=== PATIENT | male | born 1930 | race Caucasian/White ===

== ENCOUNTER 2016-04-25 16:35 | Emergency (ER) | payer MEDICARE, OTHER ==
[2016-04-25 16:16] LABS: WBC (NOT ORDERED) (RFLEX) 0 (0-5)
[2016-04-25 16:22] LABS: BASOPHILS 0.1 %; BASOPHILS ABSOLUTE 0.01 10/3/uL (0.0-0.16); EOSINOPHILS 5.8 %; EOSINOPHILS ABSOLUTE 0.39 10/3/uL (0.0-0.53); HEMATOCRIT 32.1 % (40.0-51.0); HEMOGLOBIN 10.5 g/dL (13.6-17.8); IMMATURE GRANULOCYTES 0.1 %; IMMATURE GRANULOCYTES ABSOLUTE 0.01 10/3/uL (0.0-0.11); LYMPHOCYTES 25.4 %; LYMPHOCYTES ABSOLUTE 1.71 10/3/uL (0.67-4.30); MANUAL DIFF NO %; MEAN CORPUS HGB CONC 32.7 g/dL (32.0-36.0); MEAN CORPUSCULAR HEMOGLOB 32.3 pg (26.0-34.0); MEAN CORPUSCULAR VOLUME 98.8 fL (80-100); MEAN PLATELET VOLUME 8.8 fL (9.2-13.0); MONOCYTES 4.9 %; MONOCYTES ABSOLUTE 0.33 10/3/uL (0.21-1.20); NEUTROPHILS 63.7 %; NEUTROPHILS ABSOLUTE 4.27 10/3/uL (2.02-8.40); PLATELET COUNT 163 10/3/uL (150-400); RBC DISTRIBUTION WIDTH 13.6 % (12.0-16.0); RED CELL COUNT 3.25 10/6/uL (4.7-6.1); WHITE BLOOD CELLS 6.7 10/3/uL (4.5-10.5)
[2016-04-25 16:28] LABS: ASCORBIC ACID (UR NOT ORDER) NEG (NEG); BILIRUBIN, URINE NEGATIVE (NEG); ER URINALYSIS TAT 0 Hrs 14 Mins; KETONE, URINE NEGATIVE (NEG); LEUKOCYTE ESTERASE(NOT OR NEG (NEG); NITRITE (URINE) NEG (NEG)
[2016-04-25 16:30] LABS: PARTIAL THROMBO TIME 32.1 SEC (22.5-37.2)
[~2016-04-25 16:35] MED LIST: ALBUTEROL0.083 % INH; AMIT10 PO; APRES25 PO; APRES50 PO; ASAB PO; ASPIRIN PO; BENTYL10 PO; BUM1 PO; CLOBETASOL 0.05% TOP; CLOBETASOL0.054 TOP; CLOTRIM/BETA TOP; COREG3 PO; COREG6 PO; CULTURELLE OTC PO; CYANO1000T PO; DEMA20 PO; FERROUS SULF325 M1 PO; FLORASTOR250 MG PO; IMMODLIQU PO; KAOPECTAT2 PO; KAYEXUD PO; L20 PO; L40 PO; LYRICA50 PO; LYRICA75 PO; MAGOX4 PO; MELA3 PO; MIRALAXPKT PO; MONODOX100 MG PO; MYCOSOINT TOP; NEUR300 PO; NEUR600 PO; NORV10 PO; NORV5 PO; NYSTOP100000 MG TOP; P10 PO; P20 PO; PREDNISONE TOP; PREDNISONE2.5 MG PO; PREVALITE4 G1 PO; PRILO PO; PROVENT20 INH; PROVENTSOL INH; PULRESP.5 INH; VANC125UDL PO; VANCOCIN HCL125 MG PO; VITAMIN B-122500 MCG PO; VITAMIN B-122500 MCG PO/SL; VITAMIN B-122500 MCG SL; VITAMIN D2000 UNIT PO; VITAMIN D31000 UNIT PO; Z100 PO; Z300 PO
[2016-04-25 16:40] LABS: A/G RATIO 0.9 (0.7-1.9); ALBUMIN 3.4 G/DL (3.5-5.0); ALKALINE PHOSPHATASE 159 U/L (45-117); BUN (BLOOD UREA NITROGEN) 38 MG/DL (6-23); CALCIUM, SERUM 9.9 MG/DL (8.5-10.4); CHLORIDE, SERUM 94 MMOL/L (96-112); CO2 (CARBON DIOXIDE) 34 MMOL/L (24-34); CREATININE 1.98 MG/DL (0.70-1.30); GFR AFRICAN AMERICAN 35 ML/MIN (>=60); GFR NON AFRICAN AMERICAN 30 ML/MIN (>=60); GLUCOSE, SERUM 104 MG/DL (60-99); LACTATE 0.4 MMOL/L (0.3-2.4); POTASSIUM, SERUM 4.6 MMOL/L (3.5-5.3); SGOT(AST) 21 U/L (5-40); SGPT(ALT) 13 U/L (5-65); SODIUM, SERUM 134 MMOL/L (135-148); TOTAL BILIRUBIN 1.1 MG/DL (0-1.2); TOTAL PROTEIN 7.4 G/DL (6.0-8.5); TROPONIN I <0.02 NG/ML (<0.05)
[2016-10-22] MEDS ORDERED: OMNICEF300 PO (22:09)
[2016-10-22] MEDS ORDERED: ALBUTEROL0.083 % INH (22:09)
[2016-10-22] MEDS ORDERED: BACDS PO (22:10)
[2016-10-22] MEDS ORDERED: QUESLITE PO (22:10)
[2016-10-22] MEDS ORDERED: NORV5 PO (22:10)
[2016-10-22] MEDS ORDERED: BUM1 PO ×3 (22:11)
[2016-10-22] MEDS ORDERED: BENTYL10 PO (22:11)
[2016-10-22] MEDS ORDERED: NEUR100 PO (22:12)
[2016-10-22] MEDS ORDERED: FERROUS SULF325 M1 PO (22:12)
[2016-10-22] MEDS ORDERED: Z100 PO (22:12)
[2016-10-22] MEDS ORDERED: CLOBETASOL TOP (22:13)
[2016-10-22] MEDS ORDERED: MELA3 PO (22:14)
[2016-10-22] MEDS ORDERED: AMIT10 PO (22:14)
[2016-10-22] MEDS ORDERED: COREG6 PO (22:14)
[2016-10-22] MEDS ORDERED: PEP20 PO (22:14)
[2016-10-22] MEDS ORDERED: ASAB PO (22:14)
[2016-10-22] MEDS ORDERED: T PO (22:14)
[2016-10-22] MEDS ORDERED: MAGOX4 PO (22:14)
[2016-10-22] MEDS ORDERED: FLORASTOR250 MG PO (22:15)
[2016-10-22] MEDS ORDERED: VITAMIN D31000 UNIT PO (22:15)
[2016-10-22] MEDS ORDERED: VITAMIN B-122500 MCG SL (22:15)
[2016-10-22] MEDS ORDERED: PROCRIT INJECTION IM (22:16)
[2016-11-01] MEDS ORDERED: COREG3 PO (11:02)
[2016-11-01] MEDS ORDERED: APRES50 PO (11:09)
== END 2016-04-25 17:24 | disposition home or self-care (01) ==
LOC: ER 16:35
PROVIDERS: Specialist
DX: L03.116 Cellulitis of left lower limb (principal); L03.115 Cellulitis of right lower limb; I13.0 Hypertensive heart and chronic kidney disease with heart failure and stage 1 through stage 4 chronic kidney disease, or unspecified chronic kidney disease; N18.9 Chronic kidney disease, unspecified; I50.9 Heart failure, unspecified; D64.9 Anemia, unspecified; J44.9 Chronic obstructive pulmonary disease, unspecified; F03.90 Unspecified dementia, unspecified severity, without behavioral disturbance, psychotic disturbance, mood disturbance, and anxiety; Z87.891 Personal history of nicotine dependence; Z88.5 Allergy status to narcotic agent; Z91.09 Other allergy status, other than to drugs and biological substances; Z79.82 Long term (current) use of aspirin; Z79.899 Other long term (current) drug therapy
CPT/HCPCS: 36600; 71010; 80053; 81001; 83605; 83690; 83880; 84484; 85025; 85610; 85730; 87040; 93005; 96374; 99285; A9270-GY; J0360

== ENCOUNTER 2016-05-29 19:32 | Inpatient (IN) | payer MEDICARE, OTHER ==
--- NOTE | ~2016-05-29 | HP ---
History And Physical [place] [address] [facility] [place]. [address] NAME: GOPAL DAIGLE : 30 STATUS : ADM IN PAT#: [id number] AGE: 86 ADM/REG DATE : 05/29/16 MR#: [id number] REPORT SERV DATE: 05/30/16 DICTATED BY: DANY NAPIER DATE: 05/29/16 REPORT STATUS : Draft TRANSCRIBED BY: MODL DATE: 05/29/16 DATE OF ADMISSION: 05/29/2016 CHIEF COMPLAINT: Fever, shaking chills, altered mental status, and weakness. HISTORY OF PRESENT ILLNESS: This is an 86-year-old male, who presents to the emergency room at [facility] with the above-mentioned complaint. History is obtained from the patient and reviewing data available on the Somewhere system. According to Mr. Daigle and his son who is at bedside, who is the primary historian, he was in his usual state of health, being able to take care of activities of daily living by himself until Tuesday when he had apparently a stomach virus and started having nausea with severe vomiting according to the son. They have a feeling that he might have aspirated during one of those episodes. It lasted for more than half a day. According to them, unfortunately since then, he had been declining, he had developed a cough, which was essentially nonproductive. He has become more lethargic, somnolent, and weak. Today, he started having severe shaking spells and his daughter, who was with him, is very concerned, called Home Health, and they advised them to take him to the emergency room right away. They decided to come to the emergency room at [facility]. In emergency room, initial workup revealed he had leukocytosis along with a febrile illness. He had acute on chronic kidney disease along with a faint infiltrate versus pneumonitis seen on chest x-ray. He also has chronic anemia and other problems, and Hospitalist Service is asked to admit him for further evaluation and treatment. At the time of my evaluation, he denied any chest pain or palpitations. He had no orthopnea. He had a cough, which was essentially nonproductive with some airway rattling with secretions as well. He was not able to cough it up. He had no recent history of hemoptysis, night sweats, or weight loss. He has not had any falls or loss of consciousness. No history of fevers recorded, but he did have chills as reported by the family. He did have nausea and vomiting about three to four days ago as mentioned above, none since then. No history of recent diarrhea, hematemesis, hematochezia, hematuria, or dysuria. No other history of recent travel or exposures other than those mentioned above. Mr. Daigle has chronic kidney disease stage [address] Stephon Casillas's physician's public health training assistant in [place], [place]. They have been working with the family and trying to titrate his Bumex dose almost on a daily basis. PAST MEDICAL HISTORY: Significant for history of chronic kidney disease stage [address] Stephon Casillas, anemia, history of bladder cancer now with urostomy, history of atrial fibrillation, diastolic congestive heart failure, monoclonal dermopathy, history of dementia, hypertension, COPD on chronic supplemental oxygen therapy at 3 L/minute. SOCIAL HISTORY: He does not smoke, drink, or use recreational drugs. FAMILY HISTORY: Noncontributory. History And Physical [address] [address] NAME: GOPAL DAIGLE : 30 STATUS : ADM IN [facility]#: [id number] AGE: 86 ADM/REG DATE : 05/29/16 MR#: [id number] REPORT SERV DATE: 05/30/16 DICTATED BY: DANY NAPIER DATE: 05/29/16 REPORT STATUS : Draft TRANSCRIBED BY: CORNLEL DATE: 05/29/16 MEDICATIONS: His medications at home were reviewed by me in the chart today and reordered by me. REVIEW OF SYSTEMS: As in history of present illness. All other systems were reviewed in detail and are quite unremarkable. PHYSICAL EXAMINATION: GENERAL: This is a pleasant 86-year-old, not in any acute distress. HEENT: His head is atraumatic, normocephalic. He is alert, awake, and oriented to time, place, and person. His pupils are equal, reacting to light and accommodating. External ocular muscles are intact. Membranes are moist and pink. Sclerae are nonicteric. NECK: Supple with no jugular venous distention, lymphadenopathy, or thyromegaly. LUNGS: Auscultation of his lungs revealed fair to moderate air entry with upper airway secretions and rattling. There were crackles in both bases. Trachea appeared to be in midline. HEART: Auscultation of his heart revealed normal rate and rhythm with no murmurs, rubs, or gallops appreciated. ABDOMEN: Soft, nontender. Bowel sounds are present. EXTREMITIES: Showed no cyanosis, clubbing, or edema. The lower extremities appeared to be slightly warm, but without any cellulitis or signs of venous thrombosis at this point. No calf tenderness. NEURO: Grossly intact, although he appeared somnolent. He knew where he was and was able to identify family and other questions that I asked of him. VITAL SIGNS: His temperature today was 100.0, pulse 85, respirations 26 a minute, blood pressure was 166/115 upon arrival. His oxygen saturations were 100% on 4 L of oxygen via nasal cannula. LABORATORY DATA: Reviewed on the Somewhere system showed a pH of 7.45 on an arterial blood gas, pCO2 was 46, PO2 136, and bicarb was 31.2. This was on 4 L of oxygen via nasal cannula. CMP showed a sodium of 136, potassium 4.4, chloride 93, and CO2 of 35. BUN was 43 with a creatinine of 2.07, which is up from his baseline of 1.8 to 1.7 or so. His blood glucose was 105 today. Alkaline phosphatase was 136, ALT and AST were within normal limits. His BNP today was 364.7, lactate was 0.7 today. CBC showed a white blood cell count of 14,800, hemoglobin was 9.2, hematocrit 28.1, which is about his baseline. His platelet count was 182,000. His prothrombin time was 13.9 with an INR of 1.1. Influenza A and B were negative today. Urinalysis was grossly unremarkable. Films of the chest x-ray were reviewed by me on the PACS today and compared to prior films available on the PACS as well. There is a suspicion for left lower lobe infiltrate versus pneumonitis. A 12-lead EKG done in the emergency room was reviewed and interpreted by me. There is sinus rhythm at a rate of 80 per minute without any acute ST-T changes. IMPRESSION: 1. Febrile illness. 2. Leukocytosis. 3. Pneumonia versus aspiration pneumonitis in the left lower lobe. History And Physical [address] [place]. [address] NAME: GOPAL DAIGLE : 30 STATUS : ADM IN [facility]#: [id number] AGE: 86 ADM/REG DATE : 05/29/16 MR#: [id number] REPORT SERV DATE: 05/30/16 DICTATED BY: DANY NAPIER DATE: 05/29/16 REPORT STATUS : Draft TRANSCRIBED BY: CORNELL DATE: 05/29/16 4. Acute on chronic kidney disease stage 3. 5. Anemia. 6. History of bladder cancer status post resection and urostomy. 7. History of atrial fibrillation. 8. Diastolic congestive heart failure. 9. Monoclonal gammopathy. 10.Dementia. 11.Essential hypertension. 12.Chronic obstructive pulmonary disease with chronic hypoxia on 3 L of oxygen continuously. PLAN: We will admit Mr. Daigle to the Hospitalist Service with telemetry. We will obtain cultures, start him on empiric IV antibiotics, check his lactate and procalcitonin level. We will go ahead and get a noncontrast CT of his chest to further evaluate abnormalities seen on the chest x-ray. Meanwhile, we will start him on bronchodilator treatments, his continuous supplemental oxygen therapy. We will give him some volume cautiously for his acute on chronic kidney disease, but go ahead and get Nephrology to see him in the morning. We will also get a stool Hemoccult, type, cross, and follow CBC to see if he needs any transfusions. He is in sinus rhythm at this point, on carvedilol, which we will continue. We will hold his Bumex tonight and let Nephrology reevaluate him in the morning. He will be placed on unfractionated heparin for DVT prophylaxis while here. We will continue all his other home medications and treatments. I have discussed the above plans with the patient and his son. Questions were answered, and they are agreeable to the above recommendations. Hospitalist Service will be following him during his stay here. /CORNELL Dany Napier M.D. / [id number] CC: Tho Wilkinson M.D.
--- NOTE | ~2016-05-29 | IDS ---
Interim Discharge Summary [facility] [address] [place]. [address] NAME: GOPAL ELDER : 30 STATUS : ADM IN PAT#: [id number] AGE: 86 ADM/REG DATE : 05/29/16 MR#: [id number] REPORT SERV DATE: 06/04/16 DICTATED BY: JR. LOVETT WILLIAM JOHN DATE: 06/04/16 REPORT STATUS : Draft TRANSCRIBED BY: MODShakira DATE: 06/04/16 ADMISSION DATE: 05/29/2016 DISCHARGE DATE: DATE OF SUMMARY: 06/04/2016. This summary covers the time period from 05/31/2016 through 06/07/2016. WORKING DIAGNOSES: 1. Multifactorial multilobar pneumonia. 2. Fluid overload with vascular congestion. 3. Acute kidney injury. 4. Chronic diastolic heart failure. 5. Chronic obstructive pulmonary disease. 6. Tremor. OPERATIONS, PROCEDURES, AND TREATMENT: 1. Portable chest x-ray done 05/29/2016 which showed no significant findings. 2. CT of the chest done 05/30/2016, which showed bibasilar lower lobe predominant subpleural consolidation and trace bilateral pleural effusions with multifocal pneumonia and potential aspiration as opposed to simply bibasilar atelectasis. There is three-vessel coronary artery disease and mild mediastinal adenopathy. 3. Followup chest x-ray done 06/03/2016 showed vascular congestion. 4. Chest x-ray done 06/04/2016 showed improvement. CONSULTING PHYSICIAN: Nephrology. MEDICATIONS: Please see current list. HOSPITAL COURSE: Briefly, the patient is an 86-year-old male who at baseline can ambulate and do some of his activities of daily living. He has a very supportive family who takes turns caring for him. There is also some hired caregiver. The patient presented to the emergency room on 05/29/2016 with fevers, shaking chills, altered mental status, and weakness. Apparently, the patient had gastroenteritis the prior week and had vomited, and since that time, had declined, and family felt he had probably aspirated. On initial exam, his temperature was 100, heart rate 85, respiratory rate 26, blood pressure is 166/50, saturation was 100% on 4 L by nasal cannula. He was in no distress. He was awake, alert, and oriented at that time. Lungs had fair to moderate air entry with upper airway secretions and rattling and crackles in both bases. Lab showed an arterial blood gas, pH of 7.45, pCO2 of 46, pO2 136 on 4 L oxygen by nasal cannula. BUN was 43, creatinine was 2.1. CBC had a white count of 14.8. Chest x-ray as detailed above. The patient was admitted to the hospital for a "febrile illness." He underwent a CT of the chest and was placed on IV Zosyn. He was seen and evaluated by Speech and no obvious sign of aspiration was noted. Since that time, the patient's mental status has waxed and waned. He has consistently been on several liters of oxygen by nasal cannula. Interim Discharge Summary [address] [address] NAME: GOPAL ELDER : 30 STATUS : ADM IN [facility]#: [id number] AGE: 86 ADM/REG DATE : 05/29/16 MR#: [id number] REPORT SERV DATE: 06/04/16 DICTATED BY: JR. LOVETT WILLIAM JOHN DATE: 06/04/16 REPORT STATUS : Draft TRANSCRIBED BY: CORNELL DATE: 06/04/16 The patient has acute on chronic kidney disease. Nephrology has been following. On 06/03/2016, the patient was more lethargic than normal. Arterial blood gas was performed as well as a chest x-ray. Chest x-ray revealed increasing volume in the lungs. He was given a single dose of Lasix 40 mg with fair diuresis and resolution of the lethargy. Desired disposition for this patient is rehabilitation to strengthen him in order to improve his quality of life and return home with family caregivers. Dr. Lambert will assume care of this patient in the morning. WCaitF/CORNELL Chon Lovett Jr, MD / [id number] CC: Chon Lovett Jr, MD Dabney James, M.D.
--- NOTE | ~2016-05-29 | CN ---
Consultation Report [facility] [address] [place]. [address] NAME: GOPAL DAIGLE : 30 STATUS : ADM IN PAT#: [id number] AGE: 86 ADM/REG DATE : 05/29/16 MR#: [id number] REPORT SERV DATE: 05/30/16 DICTATED BY: DATE: REPORT STATUS : Draft TRANSCRIBED BY: MODL DATE: 05/30/16 CONSULTATION DATE OF CONSULTATION: REASON FOR CONSULTATION: Acute kidney injury. HISTORY OF PRESENT ILLNESS: Mr. Daigle is an 86-year-old white male with a history of CKD, followed in the past by Dr. Casillas in the office. Baseline creatinine of 2. Follows very closely in the [facility]. I think he follows with [facility] regularly. No family member is in the room. Apparently, Mr. Daigle got sick on Tuesday. He had nausea and vomiting followed by diarrhea. There was question if he had aspirated sometime during these episodes. He progressively worsened with his weakness. Then yesterday, developed fever and chills. Therefore, he was brought to the emergency department. He did have fever in the emergency department. White blood cell count was elevated. Creatinine was close to baseline at 2. Creatinine today is 2.3. He denied any difficulty with urination. He did have a cystectomy, status post bladder cancer with urostomy. There is question of pneumonia. PAST MEDICAL HISTORY: CKD, diastolic heart failure, hypertension, COPD, bladder cancer with history of cystectomy and resection, cholecystectomy, anemia, and urostomy. FAMILY MEDICAL HISTORY: No end-stage renal disease. SOCIAL HISTORY: He is , lives with . Distant history of tobacco, alcohol, or illicit drug use. ALLERGIES: ADHESIVE TAPE AND MORPHINE. MEDICATIONS: Allopurinol, amitriptyline, amlodipine, aspirin, Bumex, Coreg, B12, cholecalciferol, dicyclomine, ferrous sulfate, gabapentin, heparin, ipratropium, albuterol, mag oxide, melatonin, Zosyn, and probiotic. REVIEW OF SYSTEMS: 12-point review of systems obtained, negative with the exception that in HPI. PHYSICAL EXAMINATION: VITAL SIGNS: Temp 97.6, blood pressure 145/68, pulse 66, respiratory rate 16, O2 saturation is 98% on 4 L. GENERAL: This is a chronically ill-appearing, elderly white male. He is awake, alert, and oriented. Answers questions slowly, but appropriately. HEENT: Normocephalic, atraumatic. Conjunctivae clear. Sclerae anicteric. Pupils are equal and round. Oral mucosa is dry. NECK: Without any lymphadenopathy. Neck veins flat. Consultation Report [place] [id number] [place] [address] NAME: GOPAL DAIGLE : 30 STATUS : ADM IN PAT#: [id number] AGE: 86 ADM/REG DATE : 05/29/16 MR#: [id number] REPORT SERV DATE: 05/30/16 DICTATED BY: DATE: REPORT STATUS : Draft TRANSCRIBED BY: MODL DATE: 05/30/16 LUNGS: Respirations are even and labored. He does have some crackles at the bases and a few scattered rhonchi. HEART: Rate is regular. No murmur, rub, or gallop. ABDOMEN: Soft and nontender. He has a drainage bag of his urostomy with yellow urine. No CVA tenderness. BACK: Within normal limits. NEURO: Generalized weakness. Mood and affect flat but appropriate. SKIN: Warm, dry, and intact. No unusual rashes, skin lesions. PERTINENT LABS AND X-RAYS: Sodium 137, potassium 4.3, chloride 95, CO2 of 32, BUN 48, creatinine at 2.3, magnesium 1.8, and phosphorus 4.2. WBCs 11, H and H 8 and 26, and platelets 150,000. Chest x-ray was negative. Lactate normal. BNP of 364. Influenza screen negative. UA which would have come from his urostomy, just rare bacteria. IMPRESSION: 1. Acute kidney injury on chronic kidney disease. With baseline being 2, he is not far from baseline. 2. Possible pneumonia with question of aspiration. 3. Nausea, vomiting and diarrhea, early only. 4. Chronic diastolic heart failure. 5. Chronic obstructive pulmonary disease. 6. History of bladder cancer with cystectomy and urostomy. 7. Hypertension. PLAN: Hold Bumex. Give him a liter of fluid. Follow I's and O's and labs. Antibiotics have been provided for the possible aspiration pneumonia. We will follow along with you. Thank you for the consultation. ELENI ROBIN Sung / [id number] CC: MD Lashell Glvoer II, M.D.
--- NOTE | ~2016-05-29 | DS ---
Discharge Summary [place] [address] [place]. [address] NAME: GOPAL ELDER : 30 STATUS : DIS IN PAT#: [id number] AGE: 86 ADM/REG DATE : 05/29/16 MR#: [id number] REPORT SERV DATE: 06/08/16 DICTATED BY: NAUN LAMBERT DATE: 06/07/16 REPORT STATUS : Draft TRANSCRIBED BY: MODL DATE: 06/07/16 ADMISSION DATE: 05/29/2016 DISCHARGE DATE: 06/07/2016 DISCHARGE DIAGNOSES: 1. Multifactorial multilobar pneumonia, currently resolved. 2. Fluid overload with vascular congestion. No evidence of congestive heart failure, currently resolved. 3. Acute kidney injury, now at baseline. 4. Chronic diastolic heart failure. 5. Chronic obstructive pulmonary disease. 6. Tremor. 7. History of bladder cancer, status post cystectomy, now with a urostomy. 8. History of atrial fibrillation. 9. 10.Monoclonal gammopathy of undetermined significance. 11. 12.Dementia. 13.Hypertension. 14.Chronic obstructive pulmonary disease, on chronic supplemental home O2 at 4 L per minute. 15.Chronic anemia. 16.Prostate cancer with seed implantation. 17.History of gout. CONSULTANTS DURING THIS HOSPITALIZATION: [facility]. For operation, procedures, and treatment, please refer to interim summary dictated by Dr. Chon Lovett on 06/04/2016. BRIEF HISTORY OF PRESENT ILLNESS: The patient is an 86-year-old male who at baseline can ambulate and do some of his activities of daily living with a supportive family and hired caregivers, came in with fevers, shaking, chills, and altered mental status and weakness, so he was admitted. For detailed history and physical exam, please see note dictated by Dr. Dany Toussaint on 05/29/2016. HOSPITAL COURSE: After being admitted to the hospital, this patient was cared for by Dr. Chon Lovett. Please refer to interim summary dictated by Dr. Lovett on 06/04/2016. I took over this patient's care on 06/05/2016. This patient was doing relatively well. He had finished a full course of antibiotics for his aspiration type pneumonia. He had passed his modified barium swallow study as well. Antibiotics were discontinued. Diet was re- initiated. This patient had some lethargy and issues with somnolence, so his Neurontin and his Elavil had been discontinued. He was also noted to have a slightly low hemoglobin of about 7.2. At that time, it was decided that he would need 1 unit of PRBCs, he was given that, and also since stopping the Elavil and his Neurontin, his status had significantly improved. He is back to his baseline of about 4 L. He had generalized debility due to the prolonged course of hospitalization. His blood pressure has been somewhat difficult to Discharge Summary [address] [address] NAME: GOPAL ELDER : 30 STATUS : DIS IN PAT#: [id number] AGE: 86 ADM/REG DATE : 05/29/16 MR#: [id number] REPORT SERV DATE: 06/08/16 DICTATED BY: NAUN LAMBERT DATE: 06/07/16 REPORT STATUS : Draft TRANSCRIBED BY: MODShakira DATE: 06/07/16 manage, and we have added new medications. This was discussed with the family, and we will continue these medications at this time. Nephrology had continued to see the patient in followup, and since his creatinine is now at baseline, they have okayed his discharge and they will follow him at rehab. This patient medically remained stable and is being discharged to rehab in stable condition. DISCHARGE DISPOSITION: To rehab. DISCHARGE ACTIVITY: Per facility. DISCHARGE DIET: Low sodium diet. DISCHARGE MEDICATIONS: Allopurinol 100 mg once daily, Elavil 15 mg once daily, Norvasc 5 mg twice daily, Bumex 1 mg twice daily, aspirin 81 mg once daily, Coreg 6.25 mg twice daily, vitamin B12 of 2500 mcg sublingual once daily, vitamin D3 of 2000 units once at supper, Bentyl 10 mg p.o. every morning, iron 325 mg with supper, magnesium oxide 400 mg p.o. with lunch, melatonin 3 mg once at bedtime, Florastor 250 mg p.o. after lunch to be stopped after one week, albuterol nebs one twice daily, Questran Light one dose p.o. daily p.r.n. for diarrhea, gabapentin 300 mg once daily, and Aloe [place] to be applied to the buttock area for prevention of skin breakdown. DISCHARGE FOLLOWUP: With Dr. Stephon Casillas of Nephrology post rehab. With Dr. Lashell Mcgill post rehab. More than 35 minutes spent planning this patient's discharge, reconciling medications, arranging rehab, and documenting this discharge. KVNG/HUBERTL Naun Lambert M.D. / [id number] CC: Tho Burris M.D. Christopher Poole, M.D. Chon Lovett Jr, MD
[2016-05-29 20:19] LABS: ALLENS TEST Pos; BE (BASE EXCESS) 6.5 MEQ/L (0 +/- 2.5); CARBOXYHEMOGLOBIN 1.7 % (0-3); DEVICE NC; HCO3 (ACTUAL BICARBONATE) 31.2 MEQ/L (23-27); HEMOBLOGIN CONTENT 9.6 G/DL (14-18); INSTRUMENT SERIAL # 8087; METHEMOGLOBIN 0.4 % (0-3); O2 CONTENT 13.3 VOL% (18-24); OPERATOR ID 334499; PCO2 (CO2 TENSION) 46 MMHG (35-45); PO2 (O2 TENSION) 136 MMHG (79-93); SAMPLE Arterial; pH 7.45 (7.37-7.43)
[2016-05-29 20:50] LABS: BASOPHILS 0.1 %; BASOPHILS ABSOLUTE 0.02 10/3/uL (0.0-0.16); EOSINOPHILS 1.2 %; EOSINOPHILS ABSOLUTE 0.18 10/3/uL (0.0-0.53); HEMOGLOBIN 9.2 g/dL (13.6-17.8); IMMATURE GRANULOCYTES 0.4 %; IMMATURE GRANULOCYTES ABSOLUTE 0.06 10/3/uL (0.0-0.11); LYMPHOCYTES 9.7 %; LYMPHOCYTES ABSOLUTE 1.43 10/3/uL (0.67-4.30); MEAN CORPUS HGB CONC 32.7 g/dL (32.0-36.0); MEAN CORPUSCULAR HEMOGLOB 33.2 pg (26.0-34.0); MEAN CORPUSCULAR VOLUME 101.4 fL (80-100); MEAN PLATELET VOLUME 9.4 fL (9.2-13.0); MONOCYTES 6.6 %; MONOCYTES ABSOLUTE 0.98 10/3/uL (0.21-1.20); PLATELET COUNT 182 10/3/uL (150-400); RBC DISTRIBUTION WIDTH 13.8 % (12.0-16.0); RED CELL COUNT 2.77 10/6/uL (4.7-6.1)
[2016-05-29 20:51] LABS: ER CBC TAT 0 Hrs 11 Mins; HEMATOCRIT 28.1 % (40.0-51.0); MANUAL DIFF NO %; WHITE BLOOD CELLS 14.8 10/3/uL (4.5-10.5)
[2016-05-29 20:53] LABS: ASCORBIC ACID (UR NOT ORDER) NEG (NEG); BILIRUBIN, URINE NEGATIVE (NEG); ER URINALYSIS TAT 0 Hrs 13 Mins; KETONE, URINE NEGATIVE (NEG); LEUKOCYTE ESTERASE(NOT OR NEG (NEG); NITRITE (URINE) NEG (NEG); WBC (NOT ORDERED) (RFLEX) 1 (0-5)
[2016-05-29 20:59] LABS: INTERNATIONAL NORMAL RATI 1.1 UNITS (-); PARTIAL THROMBO TIME 36.4 SEC (22.5-37.2); PROTIME (NOT ORD) 13.9 SEC (12.0-14.5)
[2016-05-29 21:01] LABS: INFLUENZA A SCREEN NEGATIVE (NEGATIVE); INFLUENZA B SCREEN NEGATIVE (NEGATIVE)
[2016-05-29 21:11] LABS: A/G RATIO 0.7 (0.7-1.9); ALBUMIN 3.1 G/DL (3.5-5.0); CALCIUM, SERUM 9.4 MG/DL (8.5-10.4); CHLORIDE, SERUM 93 MMOL/L (96-112); CO2 (CARBON DIOXIDE) 35 MMOL/L (24-34); CREATININE 2.07 MG/DL (0.70-1.30); GFR AFRICAN AMERICAN 33 ML/MIN (>=60); GFR NON AFRICAN AMERICAN 28 ML/MIN (>=60); GLOBULIN 4.3 G/DL (2.5-4.1); GLUCOSE, SERUM 105 MG/DL (60-99); POTASSIUM, SERUM 4.4 MMOL/L (3.5-5.3); SGOT(AST) 13 U/L (5-40); SGPT(ALT) 10 U/L (5-65); SODIUM, SERUM 136 MMOL/L (135-148); TOTAL BILIRUBIN 1.2 MG/DL (0-1.2); TOTAL PROTEIN 7.4 G/DL (6.0-8.5)
[2016-05-29 21:14] LABS: ALKALINE PHOSPHATASE 136 U/L (45-117); BUN (BLOOD UREA NITROGEN) 43 MG/DL (6-23)
[2016-05-29 21:15] LABS: LACTATE 0.7 MMOL/L (0.3-2.4)
[2016-05-29 21:28] LABS: PROCALCITONIN 0.34 ng/mL (<0.5)
[2016-05-29] MEDS ORDERED: NORV25 PO (22:27)
[2016-05-29] MEDS ORDERED: ALOE VESTA TOP (22:29)
[2016-05-30 06:59] LABS: BASOPHILS 0.1 %; BASOPHILS ABSOLUTE 0.01 10/3/uL (0.0-0.16); EOSINOPHILS 2.5 %; EOSINOPHILS ABSOLUTE 0.28 10/3/uL (0.0-0.53); HEMATOCRIT 26.6 % (40.0-51.0); HEMOGLOBIN 8.5 g/dL (13.6-17.8); IMMATURE GRANULOCYTES 0.2 %; IMMATURE GRANULOCYTES ABSOLUTE 0.02 10/3/uL (0.0-0.11); LYMPHOCYTES 14.3 %; MANUAL DIFF NO %; MEAN CORPUSCULAR HEMOGLOB 32.7 pg (26.0-34.0); MEAN CORPUSCULAR VOLUME 102.3 fL (80-100); MONOCYTES ABSOLUTE 0.78 10/3/uL (0.21-1.20); NEUTROPHILS 75.9 %; NEUTROPHILS ABSOLUTE 8.46 10/3/uL (2.02-8.40); PLATELET COUNT 150 10/3/uL (150-400); RBC DISTRIBUTION WIDTH 13.9 % (12.0-16.0); WHITE BLOOD CELLS 11.2 10/3/uL (4.5-10.5)
[2016-05-30 07:09] LABS: CALCIUM, SERUM 8.7 MG/DL (8.5-10.4); CHLORIDE, SERUM 95 MMOL/L (96-112); CO2 (CARBON DIOXIDE) 32 MMOL/L (24-34); CREATININE 2.31 MG/DL (0.70-1.30); GFR AFRICAN AMERICAN 29 ML/MIN (>=60); GFR NON AFRICAN AMERICAN 25 ML/MIN (>=60); GLUCOSE, SERUM 86 MG/DL (60-99); PHOSPHORUS, SERUM 4.2 MG/DL (2.5-4.5); POTASSIUM, SERUM 4.3 MMOL/L (3.5-5.3); SODIUM, SERUM 137 MMOL/L (135-148)
[2016-05-30 07:11] LABS: BUN (BLOOD UREA NITROGEN) 48 MG/DL (6-23)
[2016-05-30 12:32] LABS: CREATININE, URINE 84.3 MG/DL
[2016-05-31 05:31] LABS: BASOPHILS 0.1 %; BASOPHILS ABSOLUTE 0.01 10/3/uL (0.0-0.16); EOSINOPHILS 4.4 %; EOSINOPHILS ABSOLUTE 0.39 10/3/uL (0.0-0.53); HEMATOCRIT 24.5 % (40.0-51.0); HEMOGLOBIN 7.9 g/dL (13.6-17.8); IMMATURE GRANULOCYTES 0.3 %; IMMATURE GRANULOCYTES ABSOLUTE 0.03 10/3/uL (0.0-0.11); LYMPHOCYTES 17.2 %; LYMPHOCYTES ABSOLUTE 1.53 10/3/uL (0.67-4.30); MEAN CORPUS HGB CONC 32.2 g/dL (32.0-36.0); MEAN CORPUSCULAR HEMOGLOB 32.8 pg (26.0-34.0); MEAN CORPUSCULAR VOLUME 101.7 fL (80-100); MEAN PLATELET VOLUME 9.2 fL (9.2-13.0); MONOCYTES 6.7 %; NEUTROPHILS 71.3 %; NEUTROPHILS ABSOLUTE 6.34 10/3/uL (2.02-8.40); PLATELET COUNT 154 10/3/uL (150-400); RBC DISTRIBUTION WIDTH 13.3 % (12.0-16.0); RED CELL COUNT 2.41 10/6/uL (4.7-6.1); WHITE BLOOD CELLS 8.9 10/3/uL (4.5-10.5)
[2016-05-31 05:40] LABS: BUN (BLOOD UREA NITROGEN) 51 MG/DL (6-23); CALCIUM, SERUM 8.6 MG/DL (8.5-10.4); CHLORIDE, SERUM 97 MMOL/L (96-112); CO2 (CARBON DIOXIDE) 32 MMOL/L (24-34); CREATININE 2.53 MG/DL (0.70-1.30); GFR AFRICAN AMERICAN 26 ML/MIN (>=60); GFR NON AFRICAN AMERICAN 22 ML/MIN (>=60); GLUCOSE, SERUM 85 MG/DL (60-99); PHOSPHORUS, SERUM 3.8 MG/DL (2.5-4.5); POTASSIUM, SERUM 3.9 MMOL/L (3.5-5.3); SODIUM, SERUM 139 MMOL/L (135-148)
[2016-05-31 05:42] LABS: ALBUMIN 2.3 G/DL (3.5-5.0)
[2016-05-31 05:47] LABS: MANUAL DIFF NO %
[2016-05-31 07:26] LABS: PROCALCITONIN 0.54 ng/mL (<0.5)
[2016-06-01 09:01] LABS: BASOPHILS 0.1 %; BASOPHILS ABSOLUTE 0.01 10/3/uL (0.0-0.16); EOSINOPHILS 4.1 %; EOSINOPHILS ABSOLUTE 0.35 10/3/uL (0.0-0.53); HEMATOCRIT 25.6 % (40.0-51.0); HEMOGLOBIN 8.2 g/dL (13.6-17.8); IMMATURE GRANULOCYTES 0.2 %; IMMATURE GRANULOCYTES ABSOLUTE 0.02 10/3/uL (0.0-0.11); LYMPHOCYTES 14.9 %; LYMPHOCYTES ABSOLUTE 1.28 10/3/uL (0.67-4.30); MEAN CORPUSCULAR HEMOGLOB 32.7 pg (26.0-34.0); MEAN PLATELET VOLUME 9.1 fL (9.2-13.0); MONOCYTES ABSOLUTE 0.86 10/3/uL (0.21-1.20); NEUTROPHILS 70.7 %; NEUTROPHILS ABSOLUTE 6.09 10/3/uL (2.02-8.40); PLATELET COUNT 179 10/3/uL (150-400); RBC DISTRIBUTION WIDTH 13.5 % (12.0-16.0); RED CELL COUNT 2.51 10/6/uL (4.7-6.1); WHITE BLOOD CELLS 8.6 10/3/uL (4.5-10.5)
[2016-06-01 09:02] LABS: MANUAL DIFF NO %
[2016-06-01 09:18] LABS: ALBUMIN 2.3 G/DL (3.5-5.0); CALCIUM, SERUM 9.1 MG/DL (8.5-10.4); CHLORIDE, SERUM 100 MMOL/L (96-112); CO2 (CARBON DIOXIDE) 33 MMOL/L (24-34); CREATININE 2.36 MG/DL (0.70-1.30); GFR AFRICAN AMERICAN 28 ML/MIN (>=60); GFR NON AFRICAN AMERICAN 24 ML/MIN (>=60); GLUCOSE, SERUM 94 MG/DL (60-99); SODIUM, SERUM 140 MMOL/L (135-148)
[2016-06-01 09:19] LABS: BUN (BLOOD UREA NITROGEN) 45 MG/DL (6-23)
[2016-06-02 05:15] LABS: BASOPHILS 0.1 %; BASOPHILS ABSOLUTE 0.01 10/3/uL (0.0-0.16); HEMATOCRIT 26.9 % (40.0-51.0); HEMOGLOBIN 8.8 g/dL (13.6-17.8); IMMATURE GRANULOCYTES 0.5 %; IMMATURE GRANULOCYTES ABSOLUTE 0.04 10/3/uL (0.0-0.11); LYMPHOCYTES 16.1 %; LYMPHOCYTES ABSOLUTE 1.29 10/3/uL (0.67-4.30); MEAN CORPUS HGB CONC 32.7 g/dL (32.0-36.0); MEAN CORPUSCULAR HEMOGLOB 33.2 pg (26.0-34.0); MEAN CORPUSCULAR VOLUME 101.5 fL (80-100); MEAN PLATELET VOLUME 8.9 fL (9.2-13.0); MONOCYTES 7.6 %; MONOCYTES ABSOLUTE 0.61 10/3/uL (0.21-1.20); NEUTROPHILS 70.7 %; NEUTROPHILS ABSOLUTE 5.67 10/3/uL (2.02-8.40); PLATELET COUNT 175 10/3/uL (150-400); RBC DISTRIBUTION WIDTH 13.3 % (12.0-16.0); RED CELL COUNT 2.65 10/6/uL (4.7-6.1)
[2016-06-02 05:20] LABS: BUN (BLOOD UREA NITROGEN) 43 MG/DL (6-23); CALCIUM, SERUM 9.3 MG/DL (8.5-10.4); CHLORIDE, SERUM 99 MMOL/L (96-112); CO2 (CARBON DIOXIDE) 33 MMOL/L (24-34); CREATININE 2.35 MG/DL (0.70-1.30); GFR AFRICAN AMERICAN 28 ML/MIN (>=60); GFR NON AFRICAN AMERICAN 24 ML/MIN (>=60); GLUCOSE, SERUM 100 MG/DL (60-99); POTASSIUM, SERUM 4.1 MMOL/L (3.5-5.3); SODIUM, SERUM 140 MMOL/L (135-148)
[2016-06-02 05:31] LABS: MANUAL DIFF NO %
[2016-06-03 05:08] LABS: BUN (BLOOD UREA NITROGEN) 43 MG/DL (6-23); CALCIUM, SERUM 9.3 MG/DL (8.5-10.4); CHLORIDE, SERUM 103 MMOL/L (96-112); CO2 (CARBON DIOXIDE) 32 MMOL/L (24-34); CREATININE 2.59 MG/DL (0.70-1.30); GFR AFRICAN AMERICAN 25 ML/MIN (>=60); GFR NON AFRICAN AMERICAN 21 ML/MIN (>=60); GLUCOSE, SERUM 94 MG/DL (60-99); POTASSIUM, SERUM 4.5 MMOL/L (3.5-5.3); SODIUM, SERUM 141 MMOL/L (135-148)
[2016-06-03 10:37] LABS: BE (BASE EXCESS) 7.9 MEQ/L (0 +/- 2.5); CARBOXYHEMOGLOBIN 0.4 % (0-3); DEVICE NC; HCO3 (ACTUAL BICARBONATE) 34.6 MEQ/L (23-27); HEMOBLOGIN CONTENT 9.3 G/DL (14-18); INSTRUMENT SERIAL # 11843; METHEMOGLOBIN 0.5 % (0-3); PCO2 (CO2 TENSION) 62 MMHG (35-45); PO2 (O2 TENSION) 62 MMHG (79-93); SAMPLE Arterial; pH 7.37 (7.37-7.43)
[2016-06-03 15:25] LABS: BE (BASE EXCESS) 8.6 MEQ/L (0 +/- 2.5); CARBOXYHEMOGLOBIN 0.2 % (0-3); DEVICE NC; HCO3 (ACTUAL BICARBONATE) 35.6 MEQ/L (23-27); INSTRUMENT SERIAL # 11843; METHEMOGLOBIN 0.4 % (0-3); O2 CONTENT 14.5 VOL% (18-24); PCO2 (CO2 TENSION) 63 MMHG (35-45); PO2 (O2 TENSION) 69 MMHG (79-93); SAMPLE Arterial; pH 7.37 (7.37-7.43)
[2016-06-04 05:57] LABS: BASOPHILS 0.2 %; BASOPHILS ABSOLUTE 0.02 10/3/uL (0.0-0.16); EOSINOPHILS 3.2 %; EOSINOPHILS ABSOLUTE 0.27 10/3/uL (0.0-0.53); HEMATOCRIT 24.7 % (40.0-51.0); IMMATURE GRANULOCYTES 0.6 %; IMMATURE GRANULOCYTES ABSOLUTE 0.05 10/3/uL (0.0-0.11); LYMPHOCYTES 17.7 %; LYMPHOCYTES ABSOLUTE 1.51 10/3/uL (0.67-4.30); MEAN CORPUS HGB CONC 32.4 g/dL (32.0-36.0); MEAN CORPUSCULAR HEMOGLOB 33.1 pg (26.0-34.0); MEAN CORPUSCULAR VOLUME 102.1 fL (80-100); MEAN PLATELET VOLUME 8.8 fL (9.2-13.0); MONOCYTES 6.7 %; MONOCYTES ABSOLUTE 0.57 10/3/uL (0.21-1.20); NEUTROPHILS 71.6 %; NEUTROPHILS ABSOLUTE 6.11 10/3/uL (2.02-8.40); PLATELET COUNT 208 10/3/uL (150-400); RBC DISTRIBUTION WIDTH 13.2 % (12.0-16.0); RED CELL COUNT 2.42 10/6/uL (4.7-6.1); WHITE BLOOD CELLS 8.5 10/3/uL (4.5-10.5)
[2016-06-04 06:05] LABS: MANUAL DIFF NO %
[2016-06-04 06:26] LABS: CALCIUM, SERUM 9.4 MG/DL (8.5-10.4); CHLORIDE, SERUM 100 MMOL/L (96-112); CO2 (CARBON DIOXIDE) 31 MMOL/L (24-34); CREATININE 2.78 MG/DL (0.70-1.30); GFR AFRICAN AMERICAN 23 ML/MIN (>=60); GFR NON AFRICAN AMERICAN 20 ML/MIN (>=60); GLUCOSE, SERUM 91 MG/DL (60-99); PHOSPHORUS, SERUM 3.9 MG/DL (2.5-4.5); POTASSIUM, SERUM 4.3 MMOL/L (3.5-5.3); SODIUM, SERUM 142 MMOL/L (135-148)
[2016-06-04 06:28] LABS: BUN (BLOOD UREA NITROGEN) 47 MG/DL (6-23)
[2016-06-04 11:09] LABS: PROCALCITONIN 0.32 ng/mL (<0.5)
[2016-06-05 04:43] LABS: BASOPHILS 0.3 %; BASOPHILS ABSOLUTE 0.02 10/3/uL (0.0-0.16); EOSINOPHILS 4.8 %; EOSINOPHILS ABSOLUTE 0.35 10/3/uL (0.0-0.53); HEMOGLOBIN 7.5 g/dL (13.6-17.8); IMMATURE GRANULOCYTES 0.4 %; IMMATURE GRANULOCYTES ABSOLUTE 0.03 10/3/uL (0.0-0.11); LYMPHOCYTES 19.2 %; MEAN CORPUS HGB CONC 32.6 g/dL (32.0-36.0); MEAN CORPUSCULAR VOLUME 101.3 fL (80-100); MEAN PLATELET VOLUME 8.8 fL (9.2-13.0); MONOCYTES 5.4 %; MONOCYTES ABSOLUTE 0.39 10/3/uL (0.21-1.20); NEUTROPHILS 69.9 %; NEUTROPHILS ABSOLUTE 5.09 10/3/uL (2.02-8.40); PLATELET COUNT 208 10/3/uL (150-400); RBC DISTRIBUTION WIDTH 13.4 % (12.0-16.0); RED CELL COUNT 2.27 10/6/uL (4.7-6.1); WHITE BLOOD CELLS 7.3 10/3/uL (4.5-10.5)
[2016-06-05 04:45] LABS: MANUAL DIFF NO %
[2016-06-05 04:54] LABS: ALBUMIN 1.9 G/DL (3.5-5.0); CALCIUM, SERUM 9.4 MG/DL (8.5-10.4); CHLORIDE, SERUM 100 MMOL/L (96-112); CO2 (CARBON DIOXIDE) 32 MMOL/L (24-34); CREATININE 2.76 MG/DL (0.70-1.30); GFR AFRICAN AMERICAN 23 ML/MIN (>=60); GFR NON AFRICAN AMERICAN 20 ML/MIN (>=60); GLUCOSE, SERUM 99 MG/DL (60-99); PHOSPHORUS, SERUM 4.6 MG/DL (2.5-4.5); POTASSIUM, SERUM 4.1 MMOL/L (3.5-5.3); SODIUM, SERUM 142 MMOL/L (135-148)
[2016-06-05 04:56] LABS: BUN (BLOOD UREA NITROGEN) 52 MG/DL (6-23)
[2016-06-06 06:40] LABS: BASOPHILS 0.1 %; BASOPHILS ABSOLUTE 0.01 10/3/uL (0.0-0.16); EOSINOPHILS 6.7 %; HEMATOCRIT 26.8 % (40.0-51.0); HEMOGLOBIN 8.9 g/dL (13.6-17.8); IMMATURE GRANULOCYTES 0.7 %; IMMATURE GRANULOCYTES ABSOLUTE 0.05 10/3/uL (0.0-0.11); LYMPHOCYTES ABSOLUTE 1.19 10/3/uL (0.67-4.30); MANUAL DIFF NO %; MEAN CORPUS HGB CONC 33.2 g/dL (32.0-36.0); MEAN CORPUSCULAR HEMOGLOB 32.7 pg (26.0-34.0); MEAN CORPUSCULAR VOLUME 98.5 fL (80-100); MEAN PLATELET VOLUME 8.7 fL (9.2-13.0); MONOCYTES 6.5 %; MONOCYTES ABSOLUTE 0.48 10/3/uL (0.21-1.20); NEUTROPHILS ABSOLUTE 5.19 10/3/uL (2.02-8.40); PLATELET COUNT 241 10/3/uL (150-400); RBC DISTRIBUTION WIDTH 15.2 % (12.0-16.0); RED CELL COUNT 2.72 10/6/uL (4.7-6.1); WHITE BLOOD CELLS 7.4 10/3/uL (4.5-10.5)
[2016-06-06 06:53] LABS: BUN (BLOOD UREA NITROGEN) 50 MG/DL (6-23); CALCIUM, SERUM 9.6 MG/DL (8.5-10.4); CHLORIDE, SERUM 100 MMOL/L (96-112); CO2 (CARBON DIOXIDE) 33 MMOL/L (24-34); GFR AFRICAN AMERICAN 29 ML/MIN (>=60); GFR NON AFRICAN AMERICAN 25 ML/MIN (>=60); GLUCOSE, SERUM 90 MG/DL (60-99); PHOSPHORUS, SERUM 4.4 MG/DL (2.5-4.5); POTASSIUM, SERUM 3.9 MMOL/L (3.5-5.3); SODIUM, SERUM 143 MMOL/L (135-148)
[2016-06-06 08:08] LABS: PROCALCITONIN 0.46 ng/mL (<0.5)
[2016-10-22] MEDS ORDERED: ALBUTEROL0.083 % INH (22:09)
[2016-10-22] MEDS ORDERED: OMNICEF300 PO (22:09)
[2016-10-22] MEDS ORDERED: BACDS PO (22:10)
[2016-10-22] MEDS ORDERED: QUESLITE PO (22:10)
[2016-10-22] MEDS ORDERED: NORV5 PO (22:10)
[2016-10-22] MEDS ORDERED: BUM1 PO ×3 (22:11)
[2016-10-22] MEDS ORDERED: BENTYL10 PO (22:11)
[2016-10-22] MEDS ORDERED: FERROUS SULF325 M1 PO (22:12)
[2016-10-22] MEDS ORDERED: Z100 PO (22:12)
[2016-10-22] MEDS ORDERED: NEUR100 PO (22:12)
[2016-10-22] MEDS ORDERED: CLOBETASOL TOP (22:13)
[2016-10-22] MEDS ORDERED: MELA3 PO (22:14)
[2016-10-22] MEDS ORDERED: COREG6 PO (22:14)
[2016-10-22] MEDS ORDERED: ASAB PO (22:14)
[2016-10-22] MEDS ORDERED: PEP20 PO (22:14)
[2016-10-22] MEDS ORDERED: AMIT10 PO (22:14)
[2016-10-22] MEDS ORDERED: MAGOX4 PO (22:14)
[2016-10-22] MEDS ORDERED: T PO (22:14)
[2016-10-22] MEDS ORDERED: FLORASTOR250 MG PO (22:15)
[2016-10-22] MEDS ORDERED: VITAMIN D31000 UNIT PO (22:15)
[2016-10-22] MEDS ORDERED: VITAMIN B-122500 MCG SL (22:15)
[2016-10-22] MEDS ORDERED: PROCRIT INJECTION IM (22:16)
[2016-11-01] MEDS ORDERED: COREG3 PO (11:02)
[2016-11-01] MEDS ORDERED: APRES50 PO (11:09)
== END 2016-06-07 16:48 | DRG 177 ==
LOC: ER 19:32 → 4SO 23:05
PROVIDERS: Emergency Medicine; Internal Medicine; Internal Medicine Pulmonary Disease; Nurse Practitioner; Physician Assistant; Registered Nurse
PROC: 30233N1 Transfusion of Nonautologous Red Blood Cells into Peripheral Vein, Percutaneous Approach (ICD-10-PCS; principal; 2016-06-05)
DX: J69.0 Pneumonitis due to inhalation of food and vomit (principal); J96.90 Respiratory failure, unspecified, unspecified whether with hypoxia or hypercapnia; N17.9 Acute kidney failure, unspecified; G93.41 Metabolic encephalopathy; J90 Pleural effusion, not elsewhere classified; J44.0 Chronic obstructive pulmonary disease with (acute) lower respiratory infection; I13.0 Hypertensive heart and chronic kidney disease with heart failure and stage 1 through stage 4 chronic kidney disease, or unspecified chronic kidney disease; I50.32 Chronic diastolic (congestive) heart failure; D62 Acute posthemorrhagic anemia; F03.90 Unspecified dementia, unspecified severity, without behavioral disturbance, psychotic disturbance, mood disturbance, and anxiety; D47.2 Monoclonal gammopathy; Z99.81 Dependence on supplemental oxygen; Z85.51 Personal history of malignant neoplasm of bladder; Z93.6 Other artificial openings of urinary tract status; Z90.6 Acquired absence of other parts of urinary tract; Z88.5 Allergy status to narcotic agent; Z91.048 Other nonmedicinal substance allergy status; Z79.82 Long term (current) use of aspirin; Z79.01 Long term (current) use of anticoagulants; Z92.3 Personal history of irradiation; Z85.46 Personal history of malignant neoplasm of prostate; M10.9 Gout, unspecified; R53.81 Other malaise; G25.2 Other specified forms of tremor; N18.3 Chronic kidney disease, stage 3 (moderate); T43.016A Underdosing of tricyclic antidepressants, initial encounter; Y92.239 Unspecified place in hospital as the place of occurrence of the external cause
CPT/HCPCS: 36415; 36600; 71010; 71250; 80048; 80053; 80069; 81001; 82570; 82805; 83605; 83735; 83880; 84100; 84145; 84300; 84540; 85025; 85610; 85730; 86850; 86900; 86901; 86920; 87040; 87804; 92610-GN; 93005; 94640; 96374; 97162-GP; 97530-GP; 99285; A9270-GY; G8978-CL-GP; G8979-CJ-GP; G8996-CJ-GN; G8997-CJ-GN; G8998-CJ-GN; J0360; J2543; P9040

== ENCOUNTER 2016-06-28 11:08 | Inpatient (IN) | payer MEDICARE, OTHER ==
--- NOTE | ~2016-06-28 | CN ---
Consultation Report [facility] [address] [place]. [address] NAME: GOPAL ELDER : 30 STATUS : ADM IN PAT#: [id number] AGE: 86 ADM/REG DATE : 06/28/16 MR#: [id number] REPORT SERV DATE: 06/29/16 DICTATED BY: ZEYNEP PALMER DATE: 06/29/16 REPORT STATUS : Draft TRANSCRIBED BY: MODL DATE: 06/29/16 DATE OF CONSULTATION: REASON FOR CONSULTATION: Acute kidney injury. HISTORY OF PRESENT ILLNESS: This is a pleasant 86-year-old male patient followed in our [place] office primarily by Andrews Peralta, nurse practitioner, known baseline of 2 to 2.5, was recently inpatient here at [facility] for a prolonged course with diagnosis including pneumonia. He was subsequently dismissed to [facility] and then returned home. After being there approximately one week, the patient has returned here for altered mentation and diagnosed with urinary tract infection and acute kidney injury. We are asked to evaluate and provide recommendations regarding the latter. The patient is lying in bed this afternoon. He is awake and alert. At baseline, he is known to be somewhat demented with known Parkinson's. Family member is at bedside and provides assistance and care at home. The patient is in no acute distress. PAST MEDICAL HISTORY: Positive for chronic kidney disease, baseline creatinine of 2 to 2.5, followed closely by Andrews Peralta in our [place] office. History is also positive for diastolic congestive heart failure, unknown ejection fraction at point of dictation, hypertension, COPD, bladder cancer with history of cystectomy and resection, cholecystectomy, anemia, and urostomy. FAMILY HISTORY: Noncontributory and not reviewed during this consultation and dictation. SOCIAL HISTORY: No ETOH. No illicit drugs. He is . Lives here locally in the [place] area. Known medical history as above and cared for with the assistance of his family and caregivers. REVIEW OF SYSTEMS: Completed with the assistance of a caregiver who is at bedside. The patient is not able to participate with known mental status deficiency. MEDICATIONS AND ALLERGIES: He lists allergies to adhesive tape and morphine. MEDICATIONS: Active medications include albuterol one neb inhaled b.i.d., Zyloprim 100 mg p.o. daily, Elavil 15 mg p.o. at bedtime, Norvasc 5 mg p.o. b.i.d., ASA 81 mg daily, Bumex 1 mg daily and additional doses p.r.n. which is modified with family assistance, Sinemet 25/100 one tab p.o. t.i.d., Coreg 6.25 mg p.o. b.i.d., vitamin D 2000 units p.o. daily, Prevalite 1 packet p.o. daily p.r.n., vitamin B12 2500 mcg sublingual daily, Bentyl 10 mg p.o. daily, Aricept 5 mg p.o. at bedtime, ferrous sulfate 325 mg p.o. daily, Neurontin 150 mg p.o. at bedtime, lipoic acid 300 mg p.o. b.i.d., magnesium oxide 400 mg daily, melatonin 3 mg p.o. at bedtime p.r.n., Aloe [place] ointment one topical p.r.n., Florastor 250 mg p.o. daily, and an unknown topical compound is also listed. PHYSICAL EXAMINATION: Consultation Report [address] [address] NAME: GOPAL ELDER : 30 STATUS : ADM IN PAT#: [id number] AGE: 86 ADM/REG DATE : 06/28/16 MR#: [id number] REPORT SERV DATE: 06/29/16 DICTATED BY: ZEYNEP PALMER DATE: 06/29/16 REPORT STATUS : Draft TRANSCRIBED BY: CORNELL DATE: 06/29/16 VITAL SIGNS: Blood pressure 157/69, temperature 98.5, respiratory rate is 16, heart rate 65 beats per minute and regular. He is 100% on 2 L. GENERAL: He is a chronically ill-appearing parkinsonian, somewhat demented male patient, lying in bed during evaluation. HEENT: Normocephalic and atraumatic. Normal ocular movements. No scleral icterus or conjunctival pallor is appreciated. NECK: Supple without thyromegaly. No JVD or mass. CHEST: Shows positive S1 and S2. No rubs or gallops. LUNGS: Diminished throughout with normal expansion and effort bilaterally without rhonchi or wheeze. GI: Shows positive bowel sounds in all four quadrants. No appreciable mass. No tenderness. There is a noted urinary outlet in his abdomen which is consistent with his medical history. : Deferred. EXTREMITIES: Show positive pulses to all four extremities. No clubbing, cyanosis, or edema. NEUROLOGICAL: He is nonfocal, but does have parkinsonian-like symptoms with some level of tremors and is somewhat demented. SKIN: Appears to be warm, dry, and intact to the visualized surfaces. No rash, lesions, or ecchymosis. He does have a sacral decubitus which is in its early stages according to the family member who was at bedside. No further in-depth skin inspection is performed. PSYCH: He is of appropriate mood and affect. LABORATORY DATA: Pertinent laboratories and imaging to this evaluation are as follows: Most recent creatinine is at 3.3 now with BUN of 72. Sodium 137, potassium 4.8, chloride 102, CO2 26, glucose of 118, calcium 9.7. CBC shows a white blood cell count at 8.6, RBC 2.67, hemoglobin 8.5, hematocrit 26.4, and platelets of 188. Urinary culture shows gram-negative bacilli to be identified and the patient is currently on antibiotics. B-natriuretic peptide at 151.6. IMPRESSION AND PLAN: This is an 86-year-old known patient to Nephrology with baseline creatinine of 2 to 2.5, followed by Andrews Peralta, admitted to the Hospitalist Service with recent medical course as listed above. He does show an acute kidney injury which has begun to improve at 3.39 with a BUN of 72. This patient has known diastolic congestive heart failure with an unknown ejection fraction and has frequently had his diuretic pattern modified by family members at home based off his diuretic burden on their visual assessment. At this point, he appears to be somewhat dry and may also have some level of interaction with urinary tract infection causing his acute kidney injury. We would stop his Bumex which has been undertaken and provide gentle IV hydration. The patient did have some level of difficulty with volume overload at last admission and would be judicious with fluids, infuse only 1 L, and reassess this patient tomorrow. Defer antibiotics to the primary care team. At this point, the patient does not exhibit clinical need for evaluation from renal Consultation Report [address] [place]. [address] NAME: GOPAL ELDER : 30 STATUS : ADM IN [facility]#: [id number] AGE: 86 ADM/REG DATE : 06/28/16 MR#: [id number] REPORT SERV DATE: 06/29/16 DICTATED BY: ZEYNEP PALMER DATE: 06/29/16 REPORT STATUS : Draft TRANSCRIBED BY: CORNELL DATE: 06/29/16 ultrasound. The patient would require a followup with Andrews Peralta in [place] post his inpatient hospital admission. Modify treatment plan based on clinical presentation, the patient's laboratory results, and further consultation with renal attending. We appreciate consultation. We are glad to follow with you. DICTATED BY: Pasha Dean NP JR/CORNELL Zeynep Palmer M.D. / [id number] CC: MD Lashell Delatorre M.D.
--- NOTE | ~2016-06-28 | DS ---
Discharge Summary [facility] [address] [place]. [address] NAME: GOPAL ELDER : 30 STATUS : DIS IN PAT#: [id number] AGE: 86 ADM/REG DATE : 06/28/16 MR#: [id number] REPORT SERV DATE: 07/04/16 DICTATED BY: ANH HAYES DATE: 07/03/16 REPORT STATUS : Draft TRANSCRIBED BY: MODL DATE: 07/03/16 ADMISSION DATE: 06/28/2016 DISCHARGE DATE: 07/03/2016 The patient is an 86-year-old male with a history of CKD stage 3 and hypertension, who was brought to the hospital by the family members with complaints of altered mental status and worsening kidney function. For further details, please refer to H and P dictated by Dr. Adams on 06/28/2016. HOSPITAL COURSE: Upon presentation to the hospital, the patient was diagnosed with urinary tract infection and encephalopathy and was admitted under Hospitalist Service for further management. The patient was started on IV Levaquin for management of his symptoms. Given his worsening kidney function, Nephrology was consulted. For further details, please refer to consultation note dictated by Nephrology on 06/29/2016. The patient was kept on IV Levaquin and given his renal function, the medication was renally dosed. The patient progressively improved with eventual resolution of encephalopathy. The patient became alert and conversational. Given resolution of symptoms and given his hemodynamic stability and his return to baseline, the patient will be discharged home today. Plan has been discussed with the patient and family, who voiced understanding and agreeable with this plan. DISCHARGE DIAGNOSES: 1. Encephalopathy. 2. Acute kidney injury. 3. Chronic kidney disease stage 4. 4. Urinary tract infection. 5. Hypertension. 6. Hyponatremia. 7. Normocytic anemia. 8. Hyperkalemia. DISCHARGE MEDICATIONS: Of note, the patient's medication has been managed by the patient's children, most of the time they do not administer the recommended dose of medication to the patient and several times they have tried weaning the patient off medications by themselves rather than in consultation with primary care physician. Given that discharge medications are as follows: 1. Levaquin 750 mg q.48 hours for two more tabs. 2. Gabapentin 300 mg at bedtime. 3. Allopurinol 100 mg p.o. daily. 4. Amitriptyline 15 mg p.o. at bedtime. 5. Amlodipine 5 mg p.o. twice a day. 6. Aspirin 81 mg p.o. every morning. 7. Coreg 6.25 mg p.o. twice a day. 8. Vitamin B12 of 2500 mcg sublingual daily. 9. Vitamin D 2000 units p.o. every morning. 10.Ferrous sulfate 325 mg p.o. every morning. 11.Magnesium oxide 400 mg p.o. daily. Discharge Summary [address] [address] NAME: GOPAL ELDER : 30 STATUS : DIS IN PAT#: [id number] AGE: 86 ADM/REG DATE : 06/28/16 MR#: [id number] REPORT SERV DATE: 07/04/16 DICTATED BY: ANH HAYES DATE: 07/03/16 REPORT STATUS : Draft TRANSCRIBED BY: CORNELL DATE: 07/03/16 12.Florastor 250 mg p.o. daily. 13.Albuterol 0.5 mg inhalation one neb inhalation twice daily. 14.Bumex 1 tab p.o. daily. IMAGING: Portable chest x-ray, impression: Linear scar versus atelectasis in left lower lobe, mild cardiomegaly similar to previous CHF pattern. DISPOSITION: The patient will be discharged home under the care of children. ACTIVITY: As tolerated. DIET: Regular. Greater than 30 minutes was spent coordinating discharge, providing counseling, dictation of note, medication reconciliation. MEME/CORNELL Anh Hayes MD / [id number] CC: MD Lashell Delatorre M.D.
--- NOTE | ~2016-06-28 | HP ---
History And Physical [facility] [address] [place]. [address] NAME: GOPAL ELDER : 30 STATUS : ADM IN PAT#: [id number] AGE: 86 ADM/REG DATE : 06/28/16 MR#: [id number] REPORT SERV DATE: 06/28/16 DICTATED BY: KALYN LARSON DATE: 06/28/16 REPORT STATUS : Draft TRANSCRIBED BY: MODL DATE: 06/28/16 DATE OF ADMISSION: 06/28/2016 ATTENDING PHYSICIAN: Dr. Lambert. REASON FOR ADMISSION: Altered mental status and worsening kidney disease. HISTORY OF PRESENT ILLNESS: This is an 86-year-old white male, who was discharged from [facility] last week. He was placed on some new anti-Parkinson's disease medications. He has had change in mental status Tuesday through Tuesday, now unable to eat and somnolent and unable to speak. He was brought to the emergency room. No fever or chills. He has history of bladder cancer and prostate cancer in the past. He has an ileal conduit. He was examined by Dr. Mays and found to have pyuria. He was given Rocephin and suspected to have a urinary tract infection though he had been in the hospital with multilobar pneumonia. He got antibiotics during the prior hospitalization 05/29/2016 to 06/07/2016 [address] was discharged by Dr. Lambert. We are admitting now for gentle hydration. Grandson says he usually has excessive fluid. He does have chronic kidney disease and renal failure and has been monoclonal gammopathy as well. PAST MEDICAL HISTORY: Multifactorial pneumonia, was treated and the patient rehabilitated at [facility] for a week. He had volume overload and vascular congestion secondary to diastolic congestive heart failure and renal failure. He had acute kidney injury but was at baseline at the time of discharge according to nephrology though not mentioned in the discharge summary. He has a history of tremor. The Parkinsonian medicines were in an effort to diminish the tremor to some degree. He has longstanding history of atrial fibrillation, dementia, monoclonal gammopathy, hypertension, chronic obstructive pulmonary disease on 4 L a minute oxygen at home, chronic anemia, prostate cancer with implants and history of gout. HOME MEDICATIONS: His home medications are as follows: 1. Albuterol inhaler twice a day. 2. Allopurinol 100 mg p.o. daily. 3. Amitriptyline 50 mg at bedtime. 4. Amlodipine 5 mg twice a day. 5. Aspirin 81 mg p.o. daily. 6. Bumex 1 mg daily though the family has recently held that back because he is losing edema which he usually has at baseline and Bumex 1 mg on Tuesday and if needed for swelling. 7. Carbidopa and levodopa had been held recently, it was 25/100 one tablet 3 times a day as needed. 8. Carvedilol 6.25 b.i.d. 9. Vitamin D2 2000 units p.o. daily. History And Physical [address] [place]. [address] NAME: GOPAL ELDER : 30 STATUS : ADM IN [facility]#: [id number] AGE: 86 ADM/REG DATE : 06/28/16 MR#: [id number] REPORT SERV DATE: 06/28/16 DICTATED BY: KALYN LARSON DATE: 06/28/16 REPORT STATUS : Draft TRANSCRIBED BY: CORNELL DATE: 06/28/16 10.Prevalite 1 packet p.r.n. diarrhea. 11.Cyanocobalamin p.o. daily. 12.Dicyclomine 10 mg p.o. daily. 13.Aricept 5 mg at bedtime. 14.Ferrous sulfate 325 daily. 15.Gabapentin, they are trying to taper off over 300 mg at bedtime. 16. folic acid which he is not able to take because of nausea. 17.Mag-Ox 400 mg p.o. at bedtime. 18.Melatonin 3 mg p.o. daily. 19.Miconazole 1 p.r.n. 20.Florastor 250 mg p.o. daily. 21. pain cream. ALLERGIES: INCLUDE THE FOLLOWING: ADHESIVE TAPE AND MORPHINE WHICH DRIVES HIM CRAZY. SOCIAL HISTORY: He lives at home with caretakers and supportive family members. The patient is unable to give history. He does not smoke or drink any longer. FAMILY HISTORY: Not obtainable from the patient and noncontributory. From the old chart is unobtainable as well. REVIEW OF SYSTEMS: Not obtainable from the patient. PHYSICAL EXAMINATION: GENERAL: This elderly male is difficult to arouse, most prominent with deep palpation in the abdomen on the left side. HEENT: Eyes are conjugate. Sclerae clear. Conjunctivae pink. NECK: No bruit without any JVD. CHEST: Clear to A and P. HEART: Regular S1, S2 without murmur, gallop, or click. ABDOMEN: Obese. Nontender. Bowel sounds positive. Distended. There is an ileal conduit in the right lower quadrant with sediment in the urine. Urine is light in color. EXTREMITIES: Had trace edema. No distal pulses are palpable. NEUROLOGIC: He is somnolent, arousable on deep palpation, but appears to be symmetric when aroused. His is completely flaccid bilaterally. LABORATORY: The BNP was 151.6. His urinalysis showed greater than 182 white cells per high- powered field, large leukocyte esterase. The CMP showed a creatinine now up to 3.68 with a BUN of 79, sodium 137, potassium 4.9, and albumin was 2.4. His CBC showed his white count was 7.9, hemoglobin 8.1, hematocrit 24.6, and platelets were 195. Chest x-ray, portable, showed some scarring and atelectasis in the left lower lobe center previous with resolution of congestive heart failure pattern. His arterial blood gases showed a pH 7.32, PACO2 of 43, and PO2 of 57. Review of the old chart shows his creatinine had been down to 2.42 on 06/21/2016, by about the time of discharge, had been down to 2.76 but as low as 2.0 on 06/08/2016. History And Physical [address] [address] NAME: GOPAL ELDER : 30 STATUS : ADM IN [facility]#: [id number] AGE: 86 ADM/REG DATE : 06/28/16 MR#: [id number] REPORT SERV DATE: 06/28/16 DICTATED BY: KALYN LARSON DATE: 06/28/16 REPORT STATUS : Draft TRANSCRIBED BY: MODL DATE: 05/08/17 ASSESSMENT: 1. Altered mental status, possibly medication due the Parkinson's disease possibly due to urinary tract infection, possibly due to dehydration. 2. Possible Parkinson's disease. We will hold medication. 3. Hypertension under control now. 4. Urinary tract infection. Pyuria without elevated white count. Rocephin was given. Culture was obtained. We will continue treating. 5. Acidosis. Combined metabolic mix and Respiratory rate 17. 6. Chest x-ray shows scarring and atelectasis, recovered from pneumonia and pulmonary vascular congestion. 7. Anemia likely chronic disease. 8. Chronic kidney disease, slightly worse than before. The BUN elevated now of 79, suspect dehydration may be a problem as well. We will hold the diuretics and give gentle IV D5 W for now. 9. I discussed end-of-life issues with the grandson and the patient is not to be resuscitated in the event of cardiac arrest by prior arrangements. We will enter DNR order on his behalf for this but gentle hydration, urinary tract infection treatment and assessment though he was recently on multiple antibiotics and we will repeat the BMP in the morning and see if he improves though his prognosis is poor generally. DB/MODL Kalyn Larson M.D. / [id number] CC: MD Lashell Wakefield M.D. Christopher Poole, M.D.
[2016-06-28 10:14] LABS: BE (BASE EXCESS) -4.2 MEQ/L (0 +/- 2.5); CARBOXYHEMOGLOBIN 1.4 % (0-3); DEVICE NC; HCO3 (ACTUAL BICARBONATE) 21.7 MEQ/L (23-27); INSTRUMENT SERIAL # 8087; METHEMOGLOBIN 0.2 % (0-3); O2 CONTENT 12.7 VOL% (18-24); OPERATOR ID 32214; PCO2 (CO2 TENSION) 43 MMHG (35-45); PO2 (O2 TENSION) 157 MMHG (79-93); SAMPLE Arterial; pH 7.32 (7.37-7.43)
[2016-06-28 10:33] LABS: BASOPHILS 0.1 %; BASOPHILS ABSOLUTE 0.01 10/3/uL (0.0-0.16); EOSINOPHILS 3.6 %; EOSINOPHILS ABSOLUTE 0.28 10/3/uL (0.0-0.53); ER CBC TAT 0 Hrs 09 Mins; HEMATOCRIT 24.6 % (40.0-51.0); HEMOGLOBIN 8.1 g/dL (13.6-17.8); IMMATURE GRANULOCYTES 0.1 %; IMMATURE GRANULOCYTES ABSOLUTE 0.01 10/3/uL (0.0-0.11); LYMPHOCYTES 16.1 %; LYMPHOCYTES ABSOLUTE 1.27 10/3/uL (0.67-4.30); MEAN CORPUS HGB CONC 32.9 g/dL (32.0-36.0); MEAN CORPUSCULAR HEMOGLOB 31.9 pg (26.0-34.0); MEAN CORPUSCULAR VOLUME 96.9 fL (80-100); MEAN PLATELET VOLUME 9.7 fL (9.2-13.0); MONOCYTES 10.8 %; MONOCYTES ABSOLUTE 0.85 10/3/uL (0.21-1.20); NEUTROPHILS 69.3 %; NEUTROPHILS ABSOLUTE 5.45 10/3/uL (2.02-8.40); PLATELET COUNT 195 10/3/uL (150-400); RBC DISTRIBUTION WIDTH 14.5 % (12.0-16.0); RED CELL COUNT 2.54 10/6/uL (4.7-6.1); WHITE BLOOD CELLS 7.9 10/3/uL (4.5-10.5)
[2016-06-28 10:34] LABS: MANUAL DIFF NO %
[2016-06-28 10:50] LABS: A/G RATIO 0.6 (0.7-1.9); ALBUMIN 2.4 G/DL (3.5-5.0); ALKALINE PHOSPHATASE 95 U/L (45-117); BUN (BLOOD UREA NITROGEN) 79 MG/DL (6-23); CALCIUM, SERUM 9.8 MG/DL (8.5-10.4); CHLORIDE, SERUM 104 MMOL/L (96-112); CO2 (CARBON DIOXIDE) 28 MMOL/L (24-34); CREATININE 3.68 MG/DL (0.70-1.30); GFR AFRICAN AMERICAN 16 ML/MIN (>=60); GFR NON AFRICAN AMERICAN 14 ML/MIN (>=60); GLOBULIN 4.3 G/DL (2.5-4.1); GLUCOSE, SERUM 114 MG/DL (60-99); POTASSIUM, SERUM 4.9 MMOL/L (3.5-5.3); SGOT(AST) 23 U/L (5-40); SGPT(ALT) 25 U/L (5-65); SODIUM, SERUM 137 MMOL/L (135-148); TOTAL BILIRUBIN 0.5 MG/DL (0-1.2); TOTAL PROTEIN 6.7 G/DL (6.0-8.5)
[2016-06-28 10:51] LABS: ASCORBIC ACID (UR NOT ORDER) NEG (NEG); BILIRUBIN, URINE NEGATIVE (NEG); ER URINALYSIS TAT 0 Hrs 27 Mins; KETONE, URINE NEGATIVE (NEG); LEUKOCYTE ESTERASE(NOT OR LARGE (NEG); NITRITE (URINE) NEG (NEG)
[2016-06-28 10:52] LABS: WBC (NOT ORDERED) (RFLEX) > 182 (0-5)
[~2016-06-28 11:08] MED LIST changes: +ALOE VESTA TOP; +NORV25 PO
[2016-06-28] MEDS ORDERED: ALPHA LIPOIC300 MG PO (12:18)
[2016-06-28] MEDS ORDERED: SIN25 PO (12:19)
[2016-06-28] MEDS ORDERED: ARICEPT5 PO (12:20)
[2016-06-28] MEDS ORDERED: NORV5 PO (12:20)
[2016-06-28] MEDS ORDERED: BENTYL10 PO (12:21)
[2016-06-28] MEDS ORDERED: COREG6 PO (12:21)
[2016-06-28] MEDS ORDERED: Z100 PO (12:21)
[2016-06-28] MEDS ORDERED: NEUR100 PO (12:22)
[2016-06-28] MEDS ORDERED: BUM1 PO ×2 (12:22→12:23)
[2016-06-28] MEDS ORDERED: MAGOX4 PO (12:25)
[2016-06-28] MEDS ORDERED: ASAB PO (12:26)
[2016-06-28] MEDS ORDERED: FLORASTOR250 MG PO (12:26)
[2016-06-28] MEDS ORDERED: FERROUS SULF325 M1 PO (12:26)
[2016-06-28] MEDS ORDERED: VITAMIN D2000 UNIT PO (12:27)
[2016-06-28] MEDS ORDERED: VITAMIN B-122500 MCG SL (12:27)
[2016-06-28] MEDS ORDERED: AMIT10 PO (12:27)
[2016-06-28] MEDS ORDERED: MELA3 PO (12:28)
[2016-06-28] MEDS ORDERED: ALBUTEROL5 INH (12:30)
[2016-06-28] MEDS ORDERED: ALOE VESTA TOP (12:30)
[2016-06-28] MEDS ORDERED: COMPOUNDED PAIN CRM TOP (12:31)
[2016-06-28] MEDS ORDERED: PREVALITE4 G1 PO (12:32)
[2016-06-29 06:06] LABS: BASOPHILS 0.1 %; BASOPHILS ABSOLUTE 0.01 10/3/uL (0.0-0.16); EOSINOPHILS 2.7 %; EOSINOPHILS ABSOLUTE 0.23 10/3/uL (0.0-0.53); HEMATOCRIT 26.4 % (40.0-51.0); HEMOGLOBIN 8.5 g/dL (13.6-17.8); IMMATURE GRANULOCYTES 0.5 %; IMMATURE GRANULOCYTES ABSOLUTE 0.04 10/3/uL (0.0-0.11); LYMPHOCYTES 14.1 %; LYMPHOCYTES ABSOLUTE 1.21 10/3/uL (0.67-4.30); MEAN CORPUS HGB CONC 32.2 g/dL (32.0-36.0); MEAN CORPUSCULAR HEMOGLOB 31.8 pg (26.0-34.0); MEAN CORPUSCULAR VOLUME 98.9 fL (80-100); MEAN PLATELET VOLUME 9.4 fL (9.2-13.0); MONOCYTES 8.5 %; MONOCYTES ABSOLUTE 0.73 10/3/uL (0.21-1.20); NEUTROPHILS 74.1 %; NEUTROPHILS ABSOLUTE 6.36 10/3/uL (2.02-8.40); PLATELET COUNT 188 10/3/uL (150-400); RED CELL COUNT 2.67 10/6/uL (4.7-6.1); WHITE BLOOD CELLS 8.6 10/3/uL (4.5-10.5)
[2016-06-29 06:10] LABS: MANUAL DIFF NO %
[2016-06-29 06:14] LABS: CALCIUM, SERUM 9.7 MG/DL (8.5-10.4); CHLORIDE, SERUM 102 MMOL/L (96-112); CO2 (CARBON DIOXIDE) 26 MMOL/L (24-34); CREATININE 3.39 MG/DL (0.70-1.30); GFR AFRICAN AMERICAN 18 ML/MIN (>=60); GFR NON AFRICAN AMERICAN 16 ML/MIN (>=60); GLUCOSE, SERUM 118 MG/DL (60-99); POTASSIUM, SERUM 4.8 MMOL/L (3.5-5.3); SODIUM, SERUM 137 MMOL/L (135-148)
[2016-06-29 06:19] LABS: BUN (BLOOD UREA NITROGEN) 72 MG/DL (6-23)
[2016-06-29 19:51] LABS: CREATININE, URINE 67.4 MG/DL
[2016-06-30 06:35] LABS: BASOPHILS 0.1 %; BASOPHILS ABSOLUTE 0.01 10/3/uL (0.0-0.16); EOSINOPHILS 3.1 %; EOSINOPHILS ABSOLUTE 0.31 10/3/uL (0.0-0.53); HEMATOCRIT 24.8 % (40.0-51.0); HEMOGLOBIN 8.2 g/dL (13.6-17.8); IMMATURE GRANULOCYTES 0.3 %; IMMATURE GRANULOCYTES ABSOLUTE 0.03 10/3/uL (0.0-0.11); LYMPHOCYTES 13.7 %; LYMPHOCYTES ABSOLUTE 1.35 10/3/uL (0.67-4.30); MEAN CORPUS HGB CONC 33.1 g/dL (32.0-36.0); MEAN CORPUSCULAR HEMOGLOB 32.2 pg (26.0-34.0); MEAN CORPUSCULAR VOLUME 97.3 fL (80-100); MEAN PLATELET VOLUME 9.2 fL (9.2-13.0); MONOCYTES ABSOLUTE 0.69 10/3/uL (0.21-1.20); NEUTROPHILS 75.8 %; PLATELET COUNT 189 10/3/uL (150-400); RBC DISTRIBUTION WIDTH 14.2 % (12.0-16.0); RED CELL COUNT 2.55 10/6/uL (4.7-6.1); WHITE BLOOD CELLS 9.9 10/3/uL (4.5-10.5)
[2016-06-30 06:42] LABS: MANUAL DIFF NO %
[2016-06-30 06:49] LABS: A/G RATIO 0.5 (0.7-1.9); ALBUMIN 2.3 G/DL (3.5-5.0); ALKALINE PHOSPHATASE 101 U/L (45-117); BUN (BLOOD UREA NITROGEN) 69 MG/DL (6-23); CALCIUM, SERUM 10.1 MG/DL (8.5-10.4); CHLORIDE, SERUM 100 MMOL/L (96-112); CO2 (CARBON DIOXIDE) 28 MMOL/L (24-34); CREATININE 2.95 MG/DL (0.70-1.30); GFR AFRICAN AMERICAN 21 ML/MIN (>=60); GFR NON AFRICAN AMERICAN 18 ML/MIN (>=60); GLOBULIN 4.5 G/DL (2.5-4.1); GLUCOSE, SERUM 110 MG/DL (60-99); PHOSPHORUS, SERUM 3.4 MG/DL (2.5-4.5); POTASSIUM, SERUM 4.3 MMOL/L (3.5-5.3); SGOT(AST) 21 U/L (5-40); SGPT(ALT) 22 U/L (5-65); SODIUM, SERUM 134 MMOL/L (135-148); TOTAL BILIRUBIN 0.3 MG/DL (0-1.2); TOTAL PROTEIN 6.8 G/DL (6.0-8.5)
[2016-07-01 06:46] LABS: BASOPHILS 0.1 %; BASOPHILS ABSOLUTE 0.01 10/3/uL (0.0-0.16); EOSINOPHILS 3.5 %; EOSINOPHILS ABSOLUTE 0.26 10/3/uL (0.0-0.53); HEMATOCRIT 25.1 % (40.0-51.0); HEMOGLOBIN 8.3 g/dL (13.6-17.8); IMMATURE GRANULOCYTES 0.3 %; IMMATURE GRANULOCYTES ABSOLUTE 0.02 10/3/uL (0.0-0.11); LYMPHOCYTES 14.2 %; LYMPHOCYTES ABSOLUTE 1.04 10/3/uL (0.67-4.30); MEAN CORPUS HGB CONC 33.1 g/dL (32.0-36.0); MEAN CORPUSCULAR HEMOGLOB 31.6 pg (26.0-34.0); MEAN CORPUSCULAR VOLUME 95.4 fL (80-100); MONOCYTES 5.2 %; MONOCYTES ABSOLUTE 0.38 10/3/uL (0.21-1.20); NEUTROPHILS 76.7 %; NEUTROPHILS ABSOLUTE 5.62 10/3/uL (2.02-8.40); PLATELET COUNT 204 10/3/uL (150-400); RBC DISTRIBUTION WIDTH 14.3 % (12.0-16.0); RED CELL COUNT 2.63 10/6/uL (4.7-6.1); WHITE BLOOD CELLS 7.3 10/3/uL (4.5-10.5)
[2016-07-01 06:47] LABS: MANUAL DIFF NO %
[2016-07-01 07:01] LABS: A/G RATIO 0.5 (0.7-1.9); ALBUMIN 2.4 G/DL (3.5-5.0); ALKALINE PHOSPHATASE 99 U/L (45-117); CALCIUM, SERUM 10.5 MG/DL (8.5-10.4); CHLORIDE, SERUM 104 MMOL/L (96-112); CO2 (CARBON DIOXIDE) 25 MMOL/L (24-34); GFR AFRICAN AMERICAN 24 ML/MIN (>=60); GFR NON AFRICAN AMERICAN 20 ML/MIN (>=60); GLOBULIN 4.6 G/DL (2.5-4.1); GLUCOSE, SERUM 110 MG/DL (60-99); POTASSIUM, SERUM 4.6 MMOL/L (3.5-5.3); SGOT(AST) 21 U/L (5-40); SGPT(ALT) 23 U/L (5-65); SODIUM, SERUM 138 MMOL/L (135-148); TOTAL BILIRUBIN 0.3 MG/DL (0-1.2)
[2016-07-01 07:02] LABS: BUN (BLOOD UREA NITROGEN) 61 MG/DL (6-23)
[2016-07-02 06:49] LABS: BASOPHILS 0.2 %; BASOPHILS ABSOLUTE 0.01 10/3/uL (0.0-0.16); EOSINOPHILS 5.4 %; EOSINOPHILS ABSOLUTE 0.29 10/3/uL (0.0-0.53); HEMATOCRIT 23.1 % (40.0-51.0); HEMOGLOBIN 7.8 g/dL (13.6-17.8); IMMATURE GRANULOCYTES 0.2 %; IMMATURE GRANULOCYTES ABSOLUTE 0.01 10/3/uL (0.0-0.11); LYMPHOCYTES 24.8 %; LYMPHOCYTES ABSOLUTE 1.32 10/3/uL (0.67-4.30); MEAN CORPUS HGB CONC 33.8 g/dL (32.0-36.0); MEAN CORPUSCULAR HEMOGLOB 32.1 pg (26.0-34.0); MEAN CORPUSCULAR VOLUME 95.1 fL (80-100); MEAN PLATELET VOLUME 8.5 fL (9.2-13.0); MONOCYTES 6.2 %; MONOCYTES ABSOLUTE 0.33 10/3/uL (0.21-1.20); NEUTROPHILS 63.2 %; NEUTROPHILS ABSOLUTE 3.37 10/3/uL (2.02-8.40); PLATELET COUNT 195 10/3/uL (150-400); RBC DISTRIBUTION WIDTH 14.1 % (12.0-16.0); RED CELL COUNT 2.43 10/6/uL (4.7-6.1); WHITE BLOOD CELLS 5.3 10/3/uL (4.5-10.5)
[2016-07-02 06:50] LABS: MANUAL DIFF NO %
[2016-07-02 06:58] LABS: A/G RATIO 0.5 (0.7-1.9); ALBUMIN 2.2 G/DL (3.5-5.0); ALKALINE PHOSPHATASE 92 U/L (45-117); BUN (BLOOD UREA NITROGEN) 58 MG/DL (6-23); CHLORIDE, SERUM 108 MMOL/L (96-112); CO2 (CARBON DIOXIDE) 29 MMOL/L (24-34); CREATININE 2.61 MG/DL (0.70-1.30); GFR AFRICAN AMERICAN 25 ML/MIN (>=60); GFR NON AFRICAN AMERICAN 21 ML/MIN (>=60); GLOBULIN 4.5 G/DL (2.5-4.1); GLUCOSE, SERUM 91 MG/DL (60-99); POTASSIUM, SERUM 4.8 MMOL/L (3.5-5.3); SGOT(AST) 32 U/L (5-40); SGPT(ALT) 35 U/L (5-65); SODIUM, SERUM 140 MMOL/L (135-148); TOTAL BILIRUBIN 0.2 MG/DL (0-1.2); TOTAL PROTEIN 6.7 G/DL (6.0-8.5)
[2016-07-03 05:45] LABS: BASOPHILS 0.1 %; BASOPHILS ABSOLUTE 0.01 10/3/uL (0.0-0.16); EOSINOPHILS ABSOLUTE 0.34 10/3/uL (0.0-0.53); HEMATOCRIT 23.2 % (40.0-51.0); HEMOGLOBIN 7.8 g/dL (13.6-17.8); IMMATURE GRANULOCYTES 0.4 %; IMMATURE GRANULOCYTES ABSOLUTE 0.03 10/3/uL (0.0-0.11); LYMPHOCYTES 19.8 %; LYMPHOCYTES ABSOLUTE 1.35 10/3/uL (0.67-4.30); MEAN CORPUS HGB CONC 33.6 g/dL (32.0-36.0); MEAN CORPUSCULAR HEMOGLOB 32.5 pg (26.0-34.0); MEAN CORPUSCULAR VOLUME 96.7 fL (80-100); MONOCYTES ABSOLUTE 0.48 10/3/uL (0.21-1.20); NEUTROPHILS 67.7 %; NEUTROPHILS ABSOLUTE 4.62 10/3/uL (2.02-8.40); PLATELET COUNT 221 10/3/uL (150-400); WHITE BLOOD CELLS 6.8 10/3/uL (4.5-10.5)
[2016-07-03 05:47] LABS: MANUAL DIFF NO %
[2016-07-03 06:01] LABS: A/G RATIO 0.5 (0.7-1.9); ALBUMIN 2.3 G/DL (3.5-5.0); ALKALINE PHOSPHATASE 98 U/L (45-117); CALCIUM, SERUM 10.1 MG/DL (8.5-10.4); CHLORIDE, SERUM 104 MMOL/L (96-112); CO2 (CARBON DIOXIDE) 27 MMOL/L (24-34); CREATININE 2.84 MG/DL (0.70-1.30); GFR AFRICAN AMERICAN 22 ML/MIN (>=60); GFR NON AFRICAN AMERICAN 19 ML/MIN (>=60); GLOBULIN 4.5 G/DL (2.5-4.1); GLUCOSE, SERUM 99 MG/DL (60-99); POTASSIUM, SERUM 5.5 MMOL/L (3.5-5.3); SGOT(AST) 39 U/L (5-40); SGPT(ALT) 44 U/L (5-65); SODIUM, SERUM 136 MMOL/L (135-148); TOTAL BILIRUBIN 0.4 MG/DL (0-1.2); TOTAL PROTEIN 6.8 G/DL (6.0-8.5)
[2016-07-03 06:17] LABS: BUN (BLOOD UREA NITROGEN) 63 MG/DL (6-23)
[2016-07-03] MEDS ORDERED: LEVAQUIN750 MG PO (09:49)
[2016-10-22] MEDS ORDERED: ALBUTEROL0.083 % INH (22:09)
[2016-10-22] MEDS ORDERED: OMNICEF300 PO (22:09)
[2016-10-22] MEDS ORDERED: QUESLITE PO (22:10)
[2016-10-22] MEDS ORDERED: NORV5 PO (22:10)
[2016-10-22] MEDS ORDERED: BACDS PO (22:10)
[2016-10-22] MEDS ORDERED: BUM1 PO ×3 (22:11)
[2016-10-22] MEDS ORDERED: BENTYL10 PO (22:11)
[2016-10-22] MEDS ORDERED: Z100 PO (22:12)
[2016-10-22] MEDS ORDERED: FERROUS SULF325 M1 PO (22:12)
[2016-10-22] MEDS ORDERED: NEUR100 PO (22:12)
[2016-10-22] MEDS ORDERED: CLOBETASOL TOP (22:13)
[2016-10-22] MEDS ORDERED: ASAB PO (22:14)
[2016-10-22] MEDS ORDERED: COREG6 PO (22:14)
[2016-10-22] MEDS ORDERED: AMIT10 PO (22:14)
[2016-10-22] MEDS ORDERED: T PO (22:14)
[2016-10-22] MEDS ORDERED: PEP20 PO (22:14)
[2016-10-22] MEDS ORDERED: MAGOX4 PO (22:14)
[2016-10-22] MEDS ORDERED: MELA3 PO (22:14)
[2016-10-22] MEDS ORDERED: VITAMIN B-122500 MCG SL (22:15)
[2016-10-22] MEDS ORDERED: VITAMIN D31000 UNIT PO (22:15)
[2016-10-22] MEDS ORDERED: FLORASTOR250 MG PO (22:15)
[2016-10-22] MEDS ORDERED: PROCRIT INJECTION IM (22:16)
[2016-11-01] MEDS ORDERED: COREG3 PO (11:02)
[2016-11-01] MEDS ORDERED: APRES50 PO (11:09)
== END 2016-07-03 10:42 | disposition home or self-care (01) | DRG 682 ==
LOC: ER 11:08 → 5SO 13:20
PROVIDERS: Emergency Medicine; Hospitalist; Internal Medicine
DX: N17.9 Acute kidney failure, unspecified (principal); G92 Toxic encephalopathy; E87.2 Acidosis; I50.32 Chronic diastolic (congestive) heart failure; E86.0 Dehydration; I48.2 Chronic atrial fibrillation; F03.90 Unspecified dementia, unspecified severity, without behavioral disturbance, psychotic disturbance, mood disturbance, and anxiety; I12.9 Hypertensive chronic kidney disease with stage 1 through stage 4 chronic kidney disease, or unspecified chronic kidney disease; E87.1 Hypo-osmolality and hyponatremia; N39.0 Urinary tract infection, site not specified; J98.11 Atelectasis; G20 Parkinson's disease; D47.2 Monoclonal gammopathy; J44.9 Chronic obstructive pulmonary disease, unspecified; Z85.51 Personal history of malignant neoplasm of bladder; Z99.81 Dependence on supplemental oxygen; Z85.46 Personal history of malignant neoplasm of prostate; Z93.6 Other artificial openings of urinary tract status; Z79.899 Other long term (current) drug therapy; Z79.82 Long term (current) use of aspirin; Z88.5 Allergy status to narcotic agent; Z87.01 Personal history of pneumonia (recurrent); Z66 Do not resuscitate; E87.5 Hyperkalemia; N18.4 Chronic kidney disease, stage 4 (severe)
CPT/HCPCS: 36600; 71010; 80048; 80053; 80069; 81001; 82570; 82805; 82962; 83735; 83880; 84300; 84540; 85025; 87077; 87086; 87186; 93005; 94640; 96374; 99291; A9270-GY; J1956; J2405